=== PATIENT | female | born 1960 | race Caucasian/White ===

== ENCOUNTER 2017-11-10 10:01 | Emergency (ER) | payer MEDICARE, BC ==
[~2017-11-10] VITALS: Ht 170.2 cm; Wt 61.0 kg
[~2017-11-10 10:01] MED LIST: FURO-150 PO; GUAI100L97 PO; THYR30TA21 PO; WARF10TA50 PO
[2017-11-10 10:04] VITALS: BP 138/86
== END 2017-11-10 11:38 | disposition home or self-care (01) ==
LOC: ER 10:02
DX: S86.912A Strain of unspecified muscle(s) and tendon(s) at lower leg level, left leg, initial encounter (principal); J44.9 Chronic obstructive pulmonary disease, unspecified; I50.9 Heart failure, unspecified; I48.91 Unspecified atrial fibrillation; Z79.01 Long term (current) use of anticoagulants; Z79.899 Other long term (current) drug therapy; Z85.9 Personal history of malignant neoplasm, unspecified; X58.XXXA Exposure to other specified factors, initial encounter; Y93.89 Activity, other specified; Y92.89 Other specified places as the place of occurrence of the external cause; Y99.8 Other external cause status
CPT/HCPCS: 93971; 99284

== ENCOUNTER 2022-05-16 12:46 | Outpatient (CLI) | payer MEDICARE, BC | END 2022-05-16 23:59 | disposition home or self-care (01) | LOC: CARD DIAG 12:46 | PROVIDERS: ATTEND Internal Medicine Cardiovascular Disease | DX: I08.8 Other rheumatic multiple valve diseases (principal); Z95.4 Presence of other heart-valve replacement | CPT/HCPCS: 93306 ==

== ENCOUNTER 2022-05-28 07:03 | Day surgery (SDC) | payer MEDICARE, BC ==
[2022-05-27 10:18] LABS: BASOPHILS # (AUTO) 0.1 X10'3 (0-0.2); BASOPHILS % (AUTO) 1.2 % (0-1); EOSINOPHILS # (AUTO) 0.3 X10'3 (0-0.9); EOSINOPHILS % (AUTO) 3.5 % (0-6); HEMATOCRIT 41.7 % (35.0-45.0); LYMPHOCYTES % (AUTO) 43.3 % (21-51); MEAN CORPUSCULAR HGB CONC 33.6 g/dL (33.0-36.5); MEAN CORPUSCULAR VOLUME 95.2 FL (78-98); MEAN PLATELET VOLUME 8.2 FL (7.4-10.4); MONOCYTES # (AUTO) 0.8 X10'3 (0-0.9); MONOCYTES % (AUTO) 9.1 % (2-12); NEUTROPHILS % (AUTO) 42.9 % (42-75); PLATELET COUNT 225 X10'3 (140-440); RED BLOOD COUNT 4.38 X10'6 (4.20-5.60); RED CELL DISTRIBUTION WIDTH 14.2 % (11.5-14.5); WHITE BLOOD COUNT 9.3 X10'3 (4.5-11.0)
[2022-05-27 10:30] LABS: APTT 27 SECONDS (22-32)
[2022-05-27 11:02] LABS: ALBUMIN 3.6 G/DL (3.4-5.0); ANION GAP 6 (8-16); BLOOD UREA NITROGEN 22 MG/DL (7-18); BUN/CREATININE RATIO 23.2 (6.6-38.0); CALCIUM 8.3 MG/DL (8.5-10.1); CHLORIDE 98 MMOL/L (99-107); CREATININE 0.95 MG/DL (0.40-0.90); GLUCOSE 100 MG/DL (70-104); POTASSIUM 3.8 MMOL/L (3.5-5.1); SODIUM 137 MMOL/L (135-145); TOTAL CARBON DIOXIDE 32.9 MMOL/L (24-32); eGFR 60 ML/MIN
[2022-05-28] VITALS (12 sets, daily range): BP systolic 99–138; BP diastolic 43–73
[~2022-05-28] VITALS: Ht 170.2 cm; Wt 63.5 kg
[2022-05-28] MEDS ORDERED: LORazepam 0.5 MG tablet PO PRN (07:15)
[2022-05-28] MEDS ORDERED: diphenhydrAMINE 25mg capsule PO PRN (07:15)
[2022-05-28] MEDS ORDERED: normal saline 1,000 ML IV SCH (07:15)
[2022-05-28] MEDS ORDERED: DOFE125C4 PO (07:25)
[2022-05-28] MEDS ORDERED: DOFE250C4 PO (07:26)
[2022-05-28] MEDS ORDERED: APIX5TAB3 PO (07:29)
[2022-05-28] MEDS ORDERED: POTA8CAP20 PO (07:30)
[2022-05-28] MEDS ORDERED: FURO20TA4 PO (07:30)
[2022-05-28] MEDS ORDERED: PROG200C11 PO (07:30)
[2022-05-28] MEDS ORDERED: CHOL50004 PO (07:32)
[2022-05-28] MEDS ORDERED: BUDE10.22 INH (07:32)
[2022-05-28] MEDS ORDERED: MAGN400T39 PO (07:33)
[2022-05-28] MEDS ORDERED: MAGN250T11 PO (07:33)
[2022-05-28] MEDS ORDERED: TEST200V33 SQ (07:35)
[2022-05-28] MEDS ORDERED: ESTR1TAB28 PO (07:35)
[2022-05-28] MEDS ORDERED: DILT180C49 PO (07:36)
[2022-05-28] MEDS ORDERED: ASCO500C17 PO (07:37)
[2022-05-28] MEDS ORDERED: vitamin B12 PO (07:38)
[2022-05-28] MEDS ORDERED: TRAM50TA2 PO (07:39)
[2022-05-28] MEDS ORDERED: PANT40TA54 PO (07:40)
[2022-05-28] MEDS ORDERED: BACL5TAB PO (07:40)
[2022-05-28] MEDS ORDERED: MAGN250T29 PO (07:41)
[2022-05-28] MEDS ORDERED: THYR90TA PO (07:41)
[2022-05-28] MEDS ORDERED: heparin 1,000unit/ml 10ml vial 10 ML ONE (08:31)
[2022-05-28] MEDS ORDERED: midazolam 1 mg/ML 2ml injection ONE ×2 (08:31→10:01)
[2022-05-28] MEDS ORDERED: verapamil 2.5 mg/ml inj IV ONE (08:31)
[2022-05-28] MEDS ORDERED: LIDOcaine 1% (10mg/ml) 2ml vial ONE (08:31)
[2022-05-28] MEDS ORDERED: fentaNYL/PF 50MCG/1 ML 2ML syringe ONE ×2 (08:31→10:38)
[2022-05-28] MEDS ORDERED: iohexol 350MG/ML 100ml bottle IV ONE (08:32)
[2022-05-28] MEDS ORDERED: nitroGLYCERIN-Tridil 50MG/D5W 250 ML IV ONE (08:32)
[2022-05-28] MEDS ORDERED: LIDOcaine 1% 30ml preserv. free vial ONE (09:54)
[2022-05-28] MEDS ORDERED: potassium Cl 20 mEq SR tablet PO STA (11:31)
[2022-05-28] MEDS ORDERED: furosemide 20 MG/2 ML vial IV ONE (11:35)
== END 2022-05-28 16:50 | disposition home or self-care (01) ==
LOC: SSTAY O 07:03
PROVIDERS: ATTEND Internal Medicine Cardiovascular Disease
DX: R07.9 Chest pain, unspecified (principal); I08.0 Rheumatic disorders of both mitral and aortic valves; I27.20 Pulmonary hypertension, unspecified; I48.91 Unspecified atrial fibrillation; I50.30 Unspecified diastolic (congestive) heart failure; I48.0 Paroxysmal atrial fibrillation; Z98.890 Other specified postprocedural states; K21.9 Gastro-esophageal reflux disease without esophagitis; K22.70 Barrett's esophagus without dysplasia; Z79.899 Other long term (current) drug therapy; Z85.72 Personal history of non-Hodgkin lymphomas; Z95.2 Presence of prosthetic heart valve
CPT/HCPCS: 36415; 80048; 83880; 85025; 85610; 85730; 93005; 93460; 93567; 99152; 99153; A6258; C1769; C1894; J1644; J1940; J2250; J3010; J3490; J7030; Q0163; Q9967; A6402; C1725

== ENCOUNTER 2022-06-06 12:04 | Outpatient (CLI) | payer MEDICARE, BC ==
[~2022-06-06 12:04] MED LIST changes: +APIX5TAB3 PO; +ASCO500C17 PO; +BACL5TAB PO; +BUDE10.22 INH; +CHOL50004 PO; +DILT180C49 PO; +DOFE250C4 PO; +ESTR1TAB28 PO; -FURO-150 PO; +FURO20TA4 PO; -GUAI100L97 PO; +MAGN250T29 PO; +PANT40TA54 PO; +POTA8CAP20 PO; +PROG200C11 PO; +TEST200V33 SQ; -THYR30TA21 PO; +THYR90TA PO; +TRAM50TA2 PO; -WARF10TA50 PO; +vitamin B12 PO
[2022-06-06 12:43] LABS: BASOPHILS # (AUTO) 0.1 X10'3 (0-0.2); BASOPHILS % (AUTO) 1.2 % (0-1); EOSINOPHILS # (AUTO) 0.2 X10'3 (0-0.9); HEMATOCRIT 42.9 % (35.0-45.0); LYMPHOCYTES # (AUTO) 3.6 X10'3 (1.1-4.8); LYMPHOCYTES % (AUTO) 39.2 % (21-51); MEAN CORPUSCULAR HEMOGLOBIN 31.3 PG (27.0-31.0); MEAN CORPUSCULAR HGB CONC 32.7 g/dL (33.0-36.5); MEAN CORPUSCULAR VOLUME 95.9 FL (78-98); MEAN PLATELET VOLUME 8.4 FL (7.4-10.4); MONOCYTES % (AUTO) 10.4 % (2-12); NEUTROPHILS # (AUTO) 4.3 X10'3 (1.8-7.7); NEUTROPHILS % (AUTO) 47.2 % (42-75); PLATELET COUNT 233 X10'3 (140-440); RED BLOOD COUNT 4.47 X10'6 (4.20-5.60); RED CELL DISTRIBUTION WIDTH 14.1 % (11.5-14.5); WHITE BLOOD COUNT 9.2 X10'3 (4.5-11.0)
[2022-06-06 12:52] LABS: APTT 31 SECONDS (22-32)
[2022-06-06 13:09] LABS: ALANINE AMINOTRANSFERASE 15 U/L (12-78); ALBUMIN 3.5 G/DL (3.4-5.0); ALBUMIN/GLOBULIN RATIO 0.9 (1.1-1.5); ALKALINE PHOSPHATASE 100 IU/L (46-116); ANION GAP 5 (8-16); ASPARTATE AMINO TRANSFERASE 32 U/L (10-37); BILIRUBIN,TOTAL 0.4 MG/DL (0.1-1.0); BLOOD UREA NITROGEN 12 MG/DL (7-18); BUN/CREATININE RATIO 12.4 (6.6-38.0); CALCIUM 8.8 MG/DL (8.5-10.1); CHLORIDE 102 MMOL/L (99-107); CREATININE 0.97 MG/DL (0.40-0.90); GLUCOSE 111 MG/DL (70-104); SODIUM 138 MMOL/L (135-145); TOTAL CARBON DIOXIDE 30.6 MMOL/L (24-32); TOTAL PROTEIN 7.4 G/DL (6.4-8.2); eGFR 59 ML/MIN
[2022-06-06] MEDS ORDERED: IODIXANOL 320 MG/ML INFUS..BTL 100ML IV ONE (13:12)
== END 2022-06-06 23:59 | disposition home or self-care (01) ==
LOC: RAD 12:04
PROVIDERS: ATTEND Internal Medicine Cardiovascular Disease
DX: R91.8 Other nonspecific abnormal finding of lung field (principal); J98.4 Other disorders of lung; R06.02 Shortness of breath; I65.29 Occlusion and stenosis of unspecified carotid artery; I08.0 Rheumatic disorders of both mitral and aortic valves; I70.0 Atherosclerosis of aorta; K44.9 Diaphragmatic hernia without obstruction or gangrene; K76.0 Fatty (change of) liver, not elsewhere classified; K76.89 Other specified diseases of liver; N28.1 Cyst of kidney, acquired; K57.30 Diverticulosis of large intestine without perforation or abscess without bleeding; M47.817 Spondylosis without myelopathy or radiculopathy, lumbosacral region; Z98.890 Other specified postprocedural states; Z98.82 Breast implant status; Z95.2 Presence of prosthetic heart valve
CPT/HCPCS: 36415; 71275; 74174; 80053; 85025; 85610; 85730; J3490; Q9967

== ENCOUNTER 2022-07-16 07:31 | Day surgery (SDC) | payer MEDICARE, BC ==
[~2022-07-16] VITALS: Ht 170.2 cm; Wt 61.3 kg
[2022-07-16 07:40] VITALS: BP 128/67
[2022-07-16] MEDS ORDERED: fentaNYL/PF 50MCG/1 ML 2ML syringe ONE (08:08)
[2022-07-16] MEDS ORDERED: diphenhydrAMINE 50 mg/ml inj ONE (08:08)
[2022-07-16] MEDS ORDERED: MIDAZolam 1 MG/ML 5ML VIAL ONE (08:08)
[2022-07-16] MEDS ORDERED: LIDOcaine Viscous 15ml cup ONE (08:08)
[2022-07-16] MEDS ORDERED: B PLEX PO (08:23)
[2022-07-16] MEDS ORDERED: FA/M1TAB (08:23)
[2022-07-16] MEDS ORDERED: ZINC100T2 PO (08:23)
[2022-07-16] MEDS ORDERED: vit d 3 (08:23)
[2022-07-16] MEDS ORDERED: PRAS25CA PO (08:23)
[2022-07-16] MEDS ORDERED: ALBU6.7H14 INH (08:23)
[2022-07-16 09:40] VITALS: BP 105/58
[2022-07-16 09:50] VITALS: BP 107/56
[2022-07-16 10:00] VITALS: BP 98/52
[2022-07-16 10:10] VITALS: BP 96/54
== END 2022-07-16 10:15 | disposition home or self-care (01) ==
LOC: GI LAB 07:31
PROVIDERS: ATTEND Internal Medicine Gastroenterology
DX: R13.10 Dysphagia, unspecified (principal); K29.50 Unspecified chronic gastritis without bleeding; K31.A11 Gastric intestinal metaplasia without dysplasia, involving the antrum; K22.89 Other specified disease of esophagus; K20.80 Other esophagitis without bleeding; J44.9 Chronic obstructive pulmonary disease, unspecified; C95.90 Leukemia, unspecified not having achieved remission; Z79.899 Other long term (current) drug therapy; Z98.890 Other specified postprocedural states; Z95.2 Presence of prosthetic heart valve; Z85.72 Personal history of non-Hodgkin lymphomas
CPT/HCPCS: 43239; 88305; 88313; 88342; G0500; J2250; J3010; J7030; Z7512; 99152; A4620; J1200

== ENCOUNTER 2022-12-22 06:23 | Day surgery (SDC) | payer MEDICARE, BC ==
[2022-12-22] VITALS (7 sets, daily range): BP systolic 86–120; BP diastolic 55–74
[~2022-12-22] VITALS: Ht 170.2 cm; Wt 59.0 kg
[~2022-12-22 06:23] MED LIST changes: +ALBU6.7H14 INH; +B PLEX PO; +FA/M1TAB; +PRAS25CA PO; +ZINC100T2 PO; +vit d 3
[2022-12-22] MEDS ORDERED: FLUT1BLS4 PO (06:52)
[2022-12-22] MEDS ORDERED: DILT-115 PO (06:55)
[2022-12-22] MEDS ORDERED: DOFE125C4 PO (06:57)
[2022-12-22 10:34] LABS: GLUCOSE,BODY FLUID 105 MG/DL; TOTAL PROTEIN,BODY FLUID 3.1 G/DL
[2022-12-22 11:03] LABS: LDH,BODY FLUID 112 U/L
[2022-12-22 11:48] LABS: LYMPHOCYTES,BODY FLUID 69 %; MONOCYTES,BODY FLUID 11 %; NEUTROPHILS,BODY FLUID 20 %
[2022-12-22 11:49] LABS: BF MESOTHELIAL CELLS FEW; BF RBC COUNT 1205 /CU MM; BF WBC COUNT 530 /CU MM (0-1000); BFAPPEAR CLOUDY; BFCOLOR YELLOW; BFVOLUME 60 ML
== END 2022-12-22 09:30 | disposition home or self-care (01) ==
LOC: SSTAY O 06:23
PROVIDERS: ATTEND Radiology Diagnostic Radiology
DX: J90 Pleural effusion, not elsewhere classified (principal); J45.909 Unspecified asthma, uncomplicated; K21.9 Gastro-esophageal reflux disease without esophagitis; E03.9 Hypothyroidism, unspecified; I48.91 Unspecified atrial fibrillation; Z85.3 Personal history of malignant neoplasm of breast; Z95.2 Presence of prosthetic heart valve; Z85.71 Personal history of Hodgkin lymphoma; Z98.890 Other specified postprocedural states; Z79.899 Other long term (current) drug therapy; Z90.10 Acquired absence of unspecified breast and nipple
CPT/HCPCS: 32555; 82945; 83615; 84157; 87070; 89051; C1729; J3490

== ENCOUNTER 2022-12-30 01:13 | Outpatient (CLI) | payer MEDICARE, BC ==
[~2022-12-30 01:13] MED LIST changes: -ASCO500C17 PO; -BUDE10.22 INH; +DILT-115 PO; +DOFE125C4 PO; +FLUT1BLS4 PO; -MAGN250T29 PO; -POTA8CAP20 PO
== END 2022-12-30 23:59 | disposition home or self-care (01) ==
LOC: RT 01:13
PROVIDERS: ATTEND Family Medicine
DX: J84.112 Idiopathic pulmonary fibrosis (principal)
CPT/HCPCS: 94618

== ENCOUNTER 2023-04-09 12:34 | Inpatient (IN) | payer MEDICARE, BC ==
[~2023-04-09] VITALS: Ht 170.2 cm; Wt 59.0 kg
[2023-04-09 12:39] VITALS: TEMP 99.4
--- NOTE | 2023-04-09 13:05 | NUR ---
xray at bedside
[2023-04-09 13:15] LABS: BASOPHILS # (AUTO) 0.1 X10'3 (0-0.2); BASOPHILS % (AUTO) 1.6 % (0-1); EOSINOPHILS # (AUTO) 0.1 X10'3 (0-0.9); EOSINOPHILS % (AUTO) 1.1 % (0-6); HEMATOCRIT 42.6 % (35.0-45.0); LYMPHOCYTES # (AUTO) 2.9 X10'3 (1.1-4.8); LYMPHOCYTES % (AUTO) 34.3 % (21-51); MEAN CORPUSCULAR HEMOGLOBIN 30.3 PG (27.0-31.0); MEAN CORPUSCULAR VOLUME 91.9 FL (78-98); MEAN PLATELET VOLUME 8.6 FL (7.4-10.4); MONOCYTES % (AUTO) 12.3 % (2-12); NEUTROPHILS # (AUTO) 4.3 X10'3 (1.8-7.7); NEUTROPHILS % (AUTO) 50.7 % (42-75); PLATELET COUNT 203 X10'3 (140-440); RED BLOOD COUNT 4.64 X10'6 (4.20-5.60); RED CELL DISTRIBUTION WIDTH 15.5 % (11.5-14.5); WHITE BLOOD COUNT 8.5 X10'3 (4.5-11.0)
--- NOTE | 2023-04-09 13:29 | NUR ---
PT REFUSES IV UNTIL ORDERS HAVE BEEN PUT IN TO MAKE SURE NECESSARY
[2023-04-09 13:48] LABS: ALBUMIN 3.3 G/DL (3.4-5.0); ANION GAP 7 (8-16); BILIRUBIN,TOTAL 0.5 MG/DL (0.1-1.0); BLOOD UREA NITROGEN 23 MG/DL (7-18); BUN/CREATININE RATIO 25.3 (10.0-20.0); CALCIUM 9.3 MG/DL (8.5-10.1); CHLORIDE 98 MMOL/L (99-107); CREATININE 0.91 MG/DL (0.40-0.90); GLUCOSE 111 MG/DL (70-104); POTASSIUM 3.2 MMOL/L (3.5-5.1); SODIUM 138 MMOL/L (135-145); TOTAL CARBON DIOXIDE 33.2 MMOL/L (24-32); TOTAL PROTEIN 8.3 G/DL (6.4-8.2); eCRCL 60 ML/MIN; eGFR 63 ML/MIN
[2023-04-09 13:49] LABS: ALANINE AMINOTRANSFERASE 23 U/L (12-78); ALBUMIN/GLOBULIN RATIO 0.7 (1.1-1.5); ALKALINE PHOSPHATASE 124 IU/L (46-116); ASPARTATE AMINO TRANSFERASE 33 U/L (10-37)
[2023-04-09 13:54] LABS: PRO BRAIN NATRIURETIC PEPTIDE 3665 PG/ML (0-125)
[2023-04-09] MEDS ORDERED: magnesium oxide 400mg tablet PO ONE (15:05)
[2023-04-09] MEDS ORDERED: magnesium 2GM in 50ml NS 50 ML IV ONE (15:05)
[2023-04-09] MEDS ORDERED: potassium Cl 20 mEq SR tablet PO ONE (15:05)
[2023-04-09 16:05] LABS: APTT 31 SECONDS (22-32); INR 1.1 INR; PROTHROMBIN TIME 11.5 SECONDS (9.0-12.0)
[2023-04-09] MEDS ORDERED: albuterol 2.5 MG/3 ML nebule NEB ONE (16:05)
--- NOTE | 2023-04-09 16:08 | NUR ---
Calos Alanis (uncle) [phone].
[2023-04-09 16:15] VITALS: BP 129/84; PULSE 109; RESP 16; O2SAT 95
--- NOTE | 2023-04-09 16:15 | NUR ---
Dr. Monique at bedside performing thoracenthesis.
[2023-04-09 16:29] VITALS: BP 129/74; PULSE 112; RESP 17; O2SAT 98
[2023-04-09] MEDS ORDERED: magnesium 2GM in 50ml NS 50 ML IV PRN (16:30)
[2023-04-09] MEDS ORDERED: ondansetron/PF 4mg/2ml inj IV PRN (16:30)
[2023-04-09] MEDS ORDERED: mag hydrox/Alum hydrox/simeth 30ml oral suspension PO PRN (16:30)
[2023-04-09] MEDS ORDERED: bisacodyl 10mg suppository rectal RC PRN (16:30)
[2023-04-09] MEDS ORDERED: magnesium 4gm in 100ml NS 100 ML IV PRN (16:30)
[2023-04-09] MEDS ORDERED: HYDROmorphone/PF 0.2 MG/ML SYRINGE IV PRN (16:30)
[2023-04-09] MEDS ORDERED: potassium Cl 40MEQ/1/2NS 520ml 520 ML IV PRN (16:30)
[2023-04-09] MEDS ORDERED: acetaminophen 325mg tablet PO PRN (16:30)
[2023-04-09] MEDS ORDERED: PERFLUTREN PROTEIN-A MICROSPHR (Optison) 0.22 MG/ML 3ML VIAL IV ONE (16:30)
[2023-04-09] MEDS ORDERED: potassium Cl 20 mEq SR tablet PO PRN ×2 (16:30)
[2023-04-09] MEDS ORDERED: HYDROmorphone inj. 0.5 MG/0.5 ML DISP.SYRIN IV PRN (16:30)
[2023-04-09] MEDS ORDERED: albuterol 2.5 MG/3 ML nebule NEB PRN (16:55)
[2023-04-09] MEDS ORDERED: ipratropium/albuterol 3ml nebule NEB PRN (16:55)
[2023-04-09 16:57] VITALS: PULSE 110; RESP 16
[2023-04-09 17:01] VITALS: PULSE 110; RESP 13; O2SAT 98
[2023-04-09] MEDS ORDERED: POTA8CAP20 PO (17:14)
[2023-04-09] MEDS ORDERED: LEVO50TA8 PO (17:14)
[2023-04-09 19:59] VITALS: PULSE 115; RESP 20; O2SAT 95
[2023-04-09] MEDS: docusate sod 100mg capsule PO SCH (20:00)
[2023-04-09] MEDS ORDERED: K and/or MAG REPLACEMENT MC SCH (20:00)
[2023-04-09] MEDS ORDERED: traMADol 50MG tablet PO PRN (21:20)
[2023-04-09] MEDS ORDERED: TESTOSTERONE CYPIONATE 200 MG/ML VIAL IM SCH (21:20)
[2023-04-10 06:41] LABS: BASOPHILS # (AUTO) 0.1 X10'3 (0-0.2); EOSINOPHILS # (AUTO) 0.1 X10'3 (0-0.9); EOSINOPHILS % (AUTO) 1.1 % (0-6); HEMATOCRIT 41.3 % (35.0-45.0); HEMOGLOBIN 13.7 g/dl (12.0-16.0); LYMPHOCYTES # (AUTO) 2.5 X10'3 (1.1-4.8); LYMPHOCYTES % (AUTO) 26.6 % (21-51); MEAN CORPUSCULAR HEMOGLOBIN 30.4 PG (27.0-31.0); MEAN CORPUSCULAR HGB CONC 33.1 g/dL (33.0-36.5); MEAN CORPUSCULAR VOLUME 91.7 FL (78-98); MEAN PLATELET VOLUME 8.9 FL (7.4-10.4); MONOCYTES % (AUTO) 10.6 % (2-12); NEUTROPHILS # (AUTO) 5.6 X10'3 (1.8-7.7); NEUTROPHILS % (AUTO) 60.7 % (42-75); PLATELET COUNT 192 X10'3 (140-440); RED BLOOD COUNT 4.51 X10'6 (4.20-5.60); RED CELL DISTRIBUTION WIDTH 15.1 % (11.5-14.5); WHITE BLOOD COUNT 9.2 X10'3 (4.5-11.0)
[2023-04-10] MEDS ORDERED: levoTHYROXINE 25mcg tablet PO SCH (07:00)
[2023-04-10] MEDS ORDERED: thyroid, pork 30mg tablet PO SCH (07:00)
[2023-04-10 07:04] LABS: ALANINE AMINOTRANSFERASE 20 U/L (12-78); ALBUMIN 2.7 G/DL (3.4-5.0); ALBUMIN/GLOBULIN RATIO 0.6 (1.1-1.5); ALKALINE PHOSPHATASE 107 IU/L (46-116); ANION GAP 4 (8-16); ASPARTATE AMINO TRANSFERASE 24 U/L (10-37); BILIRUBIN,TOTAL 0.9 MG/DL (0.1-1.0); BLOOD UREA NITROGEN 13 MG/DL (7-18); BUN/CREATININE RATIO 14.8 (10.0-20.0); CALCIUM 8.8 MG/DL (8.5-10.1); CHLORIDE 102 MMOL/L (99-107); CREATININE 0.88 MG/DL (0.40-0.90); GLUCOSE 93 MG/DL (70-104); MAGNESIUM 2.3 MG/DL (1.5-2.4); POTASSIUM 3.3 MMOL/L (3.5-5.1); SODIUM 139 MMOL/L (135-145); TOTAL CARBON DIOXIDE 32.7 MMOL/L (24-32); eCRCL 63 ML/MIN; eGFR 65 ML/MIN
[2023-04-10 07:14] VITALS: BP 93/60
[2023-04-10 07:20] VITALS: PULSE 113; RESP 17; O2SAT 98
[2023-04-10 07:26] VITALS: PULSE 115; RESP 17
[2023-04-10] MEDS ORDERED: pantoprazole 40mg Tablet.DR PO SCH (07:30)
--- NOTE | 2023-04-10 07:50 | NUR ---
ed bed 14--pt wishes to leave ama [phone] PAGE SENT TO DR FELIPE. PRIMARY RN YAKELIN YATES TO FILL OUT AMA FORM.
--- NOTE | 2023-04-10 07:52 | NUR ---
SPOKE WITH DR FELIPE WHO STATES HE WILL DISCHARGE PT IN APPROXIMATELY ONE HOUR. PT IS AGREEABLE WITH THIS PLAN. JODEE GOLDBERG RN AND YAKELIN LOGAN RN UPDATED WITH THIS PLAN
[2023-04-10] MEDS ORDERED: DOFETILIDE 125 MCG PO SCH (08:00)
[2023-04-10] MEDS ORDERED: budesonide 0.5mg/2ml UD nebule IH SCH (08:00)
[2023-04-10] MEDS: diltiazem CD 180mg cap (once-daily) PO SCH ×2 (08:00→08:07)
[2023-04-10] MEDS ORDERED: furosemide 20MG tablet PO SCH (08:00)
[2023-04-10] MEDS ORDERED: estradiol 1mg tablet PO SCH (08:00)
[2023-04-10] MEDS ORDERED: potassium chloride 8mEq ER tablet PO SCH (08:00)
[2023-04-10] MEDS ORDERED: apixaban 5mg tablet PO SCH (08:00)
[2023-04-10] MEDS ORDERED: DOFETILIDE 250 MG PO SCH (08:00)
[2023-04-10] MEDS ORDERED: ipratropium/albuterol 3ml nebule NEB SCH (08:00)
[2023-04-10] MEDS ORDERED: cholecalciferol (vitamin D3) 1,000 unit (25mcg) tablet PO SCH (08:00)
[2023-04-10] MEDS: docusate sod 100mg capsule PO SCH (08:00)
--- NOTE | 2023-04-10 08:50 | NUR ---
Discharge instructions given to the patient.Patient verbalized understanding of all instructions given. Peripheral IV catheter removed, tip intact. Patient left the ER ambulatory with steady gait. All her belongings were with her when she left.
[2023-04-10] MEDS ORDERED: PROGESTERONE MICRONIZED 200 MG PO SCH (21:00)
[2023-04-16] MEDS ORDERED: TESTOSTERONE CYPIONATE 200 MG/ML VIAL IM SCH (21:35)
== END 2023-04-10 08:49 | disposition home or self-care (01) | DRG 280 ==
LOC: ER 12:34 → ED HOLD 16:39 → EDBEDREQ 04-10 06:04
PROVIDERS: ADMIT Family Medicine; ATTEND Family Medicine
PROC: 0W993ZZ Drainage of Right Pleural Cavity, Percutaneous Approach (ICD-10-PCS; principal; 2023-04-09)
DX: I11.0 Hypertensive heart disease with heart failure (principal); I21.A1 Myocardial infarction type 2; I50.33 Acute on chronic diastolic (congestive) heart failure; J91.8 Pleural effusion in other conditions classified elsewhere; E87.6 Hypokalemia; I48.91 Unspecified atrial fibrillation; I25.10 Atherosclerotic heart disease of native coronary artery without angina pectoris; J44.9 Chronic obstructive pulmonary disease, unspecified; I27.20 Pulmonary hypertension, unspecified; I35.2 Nonrheumatic aortic (valve) stenosis with insufficiency; K21.9 Gastro-esophageal reflux disease without esophagitis; Z79.01 Long term (current) use of anticoagulants; Z86.711 Personal history of pulmonary embolism; Z79.899 Other long term (current) drug therapy; Z85.72 Personal history of non-Hodgkin lymphomas; Z85.71 Personal history of Hodgkin lymphoma; Z85.3 Personal history of malignant neoplasm of breast; Z90.13 Acquired absence of bilateral breasts and nipples; Z95.3 Presence of xenogenic heart valve; Z90.81 Acquired absence of spleen
CPT/HCPCS: 32555; 36415; 71045; 80053; 83735; 83880; 84484; 85025; 85610; 85730; 93005; 93306; 94640; 94760; 99285; G0378; J3475

== ENCOUNTER 2023-05-12 06:39 | Emergency (ER) | payer MEDICARE, BC ==
[~2023-05-12] VITALS: Ht 170.2 cm; Wt 59.1 kg
[~2023-05-12 06:39] MED LIST changes: -B PLEX PO; -BACL5TAB PO; -DILT180C49 PO; -FA/M1TAB; +LEVO50TA8 PO; +POTA8CAP20 PO; -PRAS25CA PO; -ZINC100T2 PO; -vit d 3; -vitamin B12 PO
[2023-05-12] MEDS ORDERED: nitroGLYCERIN 1gm ointment UD TP ONE (07:00)
[2023-05-12] MEDS ORDERED: azithromycin/NS 500mg/250ml 250 ML IV ONE (07:00)
[2023-05-12] MEDS ORDERED: CefTRIAXone 2gm/D5W 50ml BAG 50 ML IV ONE (07:00)
[2023-05-12] MEDS ORDERED: LORazepam 2 mg/ml vial IV ONE (07:00)
[2023-05-12 07:14] LABS: EOSINOPHILS # (AUTO) 0.2 X10'3 (0-0.9)
[2023-05-12 07:16] LABS: BASOPHILS # (AUTO) 0.1 X10'3 (0-0.2); EOSINOPHILS % (AUTO) 1.6 % (0-6); HEMATOCRIT 40.6 % (35.0-45.0); HEMOGLOBIN 13.8 g/dl (12.0-16.0); LYMPHOCYTES # (AUTO) 4.3 X10'3 (1.1-4.8); LYMPHOCYTES % (AUTO) 40.4 % (21-51); MEAN CORPUSCULAR HEMOGLOBIN 30.8 PG (27.0-31.0); MEAN CORPUSCULAR VOLUME 90.5 FL (78-98); MEAN PLATELET VOLUME 8.2 FL (7.4-10.4); MONOCYTES # (AUTO) 0.9 X10'3 (0-0.9); MONOCYTES % (AUTO) 8.2 % (2-12); NEUTROPHILS # (AUTO) 5.2 X10'3 (1.8-7.7); NEUTROPHILS % (AUTO) 48.8 % (42-75); PLATELET COUNT 219 X10'3 (140-440); RED BLOOD COUNT 4.48 X10'6 (4.20-5.60); WHITE BLOOD COUNT 10.6 X10'3 (4.5-11.0)
[2023-05-12 07:28] LABS: ALANINE AMINOTRANSFERASE 32 U/L (12-78); ALBUMIN 3.3 G/DL (3.4-5.0); ALBUMIN/GLOBULIN RATIO 0.6 (1.1-1.5); ALKALINE PHOSPHATASE 128 IU/L (46-116); ANION GAP 4 (8-16); ASPARTATE AMINO TRANSFERASE 39 U/L (10-37); BILIRUBIN,TOTAL 0.5 MG/DL (0.1-1.0); BLOOD UREA NITROGEN 21 MG/DL (7-18); BUN/CREATININE RATIO 21.6 (10.0-20.0); CALCIUM 9.1 MG/DL (8.5-10.1); CHLORIDE 101 MMOL/L (99-107); CREATININE 0.97 MG/DL (0.40-0.90); GLUCOSE 109 MG/DL (70-104); POTASSIUM 3.5 MMOL/L (3.5-5.1); SODIUM 138 MMOL/L (135-145); TOTAL CARBON DIOXIDE 32.6 MMOL/L (24-32); TOTAL PROTEIN 8.4 G/DL (6.4-8.2); eCRCL 57 ML/MIN; eGFR 58 ML/MIN
[2023-05-12 07:37] LABS: PRO BRAIN NATRIURETIC PEPTIDE 2907 PG/ML (0-125)
[2023-05-12] MEDS ORDERED: iohexol 350MG/ML 100ml bottle IV ONE (07:41)
[2023-05-12 08:41] VITALS: TEMP 98.1
[2023-05-12] MEDS ORDERED: LIDOcaine 1% (10mg/ml)w/preservative inj. 20ml MDV ONE (14:35)
[2023-05-12 14:56] VITALS: BP 112/72; PULSE 96; RESP 10; O2SAT 96
[2023-05-12 15:00] VITALS: BP 122/82; PULSE 97; RESP 13; O2SAT 96
[2023-05-12 15:51] VITALS: BP 116/83; PULSE 102; RESP 18; O2SAT 96
== END 2023-05-12 16:02 | disposition left against medical advice (07) ==
LOC: ER 06:39
DX: J90 Pleural effusion, not elsewhere classified (principal); R09.02 Hypoxemia; I11.0 Hypertensive heart disease with heart failure; J44.9 Chronic obstructive pulmonary disease, unspecified; Z79.899 Other long term (current) drug therapy
CPT/HCPCS: 32555; 36415; 71045; 71275; 80053; 83605; 83880; 84484; 85025; 85379; 87040; 93005; 96365; 96367; 96375; 99285; J0456; J0696; J2060; J3490; Q9967; A4620